=== PATIENT | female | born 1955 | race Caucasian/White ===

== ENCOUNTER → 2016-05-10 | Outpatient (CLI) | payer OTHER ==
[~2016-05-10] MED LIST: ATOR-54 PO; BUPR150T7 PO; CHOL100027 PO; FISHOIL PO; HYDR-5688 PO; HYDR25TA4 PO; LEVO125T72 PO; MULTTAB58 PO; VENL75CA73 PO
== END | disposition home or self-care (01) ==
LOC: C.PAPS 11:48
PROVIDERS: ATTEND Obstetrics & Gynecology
DX: Z01.419 Encounter for gynecological examination (general) (routine) without abnormal findings (principal)

== ENCOUNTER → 2016-05-11 | Outpatient (CLI) | payer OTHER ==
--- NOTE | 2016-05-11 14:38 | DIAGNOSTIC IMAGING REPORT ---
PELVIC ULTRASOUND, TRANSABDOMINAL AND TRANSVAGINAL HISTORY: D25.9 Leiomyoma of uterus COMPARISON: Pelvic ultrasound 10/04/2015. FINDINGS: Uterus: The uterus measures 13.1 x 6.0 7.8 cm. Multiple heterogeneous masses within the uterus with the largest at the fundus measuring 5.8 x 5.5 x 4.9 cm. These likely represent fibroids. This appears to be slight increase in size compared to the prior study. However, this appears to be stable compared to a 07/28/[address] Endometrial stripe: Not well visualized due to the deformity from the multiple uterine fibroids. However, this appears to be slightly thickened at 8 mm. Right ovary: Obscured by overlying bowel gas. Left ovary: Obscured by overlying bowel gas. Miscellaneous:No pelvic free fluid. IMPRESSION: 1. Multiple uterine fibroids are again noted. The dominant 5.8 cm lesion at the uterine fundus appears to be increased in size from the prior pelvic ultrasound. However, when compared to the 07/28/2014 CT examination, this does not appear to be significant change in size. Continued follow is recommended. 2. Mildly thickened endometrial stripe for age measuring 8 mm. However, this remains unchanged. Gynecologic consultation is recommended. Electronically signed by: Skinny Camacho M.D. 05/11/2016 2:35 PM Dictated Date/Time: 05/11/2016 2:25 PM
== END | disposition home or self-care (01) ==
LOC: C.ULTR 09:49
PROVIDERS: ATTEND Obstetrics & Gynecology
DX: D25.9 Leiomyoma of uterus, unspecified (principal)

== ENCOUNTER → 2016-05-31 | Outpatient (CLI) | payer OTHER | END | disposition home or self-care (01) | LOC: C.PATHSPEC 15:39 | PROVIDERS: ATTEND Obstetrics & Gynecology | DX: R93.5 Abnormal findings on diagnostic imaging of other abdominal regions, including retroperitoneum (principal); N85.8 Other specified noninflammatory disorders of uterus ==

== ENCOUNTER → 2016-11-06 | Outpatient (CLI) | payer OTHER ==
[~2016-11-06] MED LIST changes: -HYDR-5688 PO
[2016-11-06 10:04] LABS: ALT/SGPT 31 U/L (12-78); BLOOD UREA NITROGEN 17 mg/dl (7-18); BUN/CREATININE RATIO 15.3 (10-20); CALCIUM 9.9 mg/dl (8.5-10.1); CARBON DIOXIDE 28 mmol/L (21-32); CHLORIDE 104 mmol/L (98-107); GLUCOSE 88 mg/dl (70-99); POTASSIUM 3.2 mmol/L (3.5-5.1); SODIUM 140 mmol/L (136-145)
[2016-11-06 10:08] LABS: ESTIMATED AVERAGE GLUCOSE 108 mg/dl; HA1C FLAG Normal (Normal)
[2016-11-06 10:14] LABS: ALKALINE PHOSPHATASE 134 U/L (45-117); AST/SGOT 22 U/L (15-37)
== END | disposition home or self-care (01) ==
LOC: C.LAB 06:09
PROVIDERS: ATTEND Family Medicine
DX: E66.9 Obesity, unspecified (principal); R73.03 Prediabetes; I10 Essential (primary) hypertension; E03.9 Hypothyroidism, unspecified

== ENCOUNTER → 2017-02-14 | Outpatient (CLI) | payer OTHER ==
--- NOTE | 2017-02-15 14:33 | MAMMOGRAPHY REPORT ---
BILATERAL DIGITAL SCREENING MAMMOGRAM TOMOSYNTHESIS WITH CAD: 02/14/2017 CLINICAL HISTORY: Routine screening. Patient has no complaints. TECHNIQUE: Bilateral breast tomosynthesis in addition to standard 2D mammography was performed. Curr ent study was also evaluated with a Computer Aided Detection (CAD) system. COMPARISON: Comparison is made to exams dated: 03/14/2016 specimen, 03/14/2016 localization, 02/25/20 16 breast MRI, 02/11/2016 ultrasound biopsy, 02/11/2016 ultrasound, and 02/11/2016 mammogram - [facility]. BREAST COMPOSITION: There are scattered areas of fibroglandular density in both breasts. FINDINGS: A linear scar marker now overlies the left upper outer quadrant, denoting an area of recen t surgical excision that yielded multiple radial scars. There is now expected architectural distorti on in the upper outer and central left breast, denoting the area of prior surgical excision. No unex pected areas of architectural distortion, suspicious mass or suspicious calcifications are identified in the left breast. There are scattered benign rounded and rim calcifications. The parenchymal pattern of the right breast is similar to prior exams with stable nodularity througho ut the breast. Stable asymmetry in the lateral right breast. No focal area of distortion, new suspi cious mass or new suspicious macrocalcifications are seen in the right breast. IMPRESSION: ACR BI-RADS CATEGORY 1: NEGATIVE Expected postsurgical changes in the left breast, without mammographic evidence of malignancy jessie falk. Recommend routine screening tomosynthesis mammograms in one year. These results and recommendations were discussed with the patient on 02/14/2017. The patient will a lso receive written notification of the results. Approximately 10% of breast cancers are not detected with mammography. A negative mammographic report should not delay biopsy if a clinically suggestive mass is present. Sofia Vick M.D. ay/:02/14/2017 15:19:35 Research Electrician: Naz DELONG(Jimenez)(M), [facility] letter sent: Normal 1/2 BI-RADS Code: ACR BI-RADS Category 1: Negative
== END | disposition home or self-care (01) ==
LOC: C.MAMM 14:47
PROVIDERS: ATTEND Obstetrics & Gynecology
DX: Z12.31 Encounter for screening mammogram for malignant neoplasm of breast (principal); N64.89 Other specified disorders of breast

== ENCOUNTER → 2017-04-10 | Outpatient (CLI) | payer OTHER ==
[2017-04-10 09:51] LABS: ALT/SGPT 39 U/L (12-78); BLOOD UREA NITROGEN 14 mg/dl (7-18); BUN/CREATININE RATIO 12.9 (10-20); CALCIUM 9.8 mg/dl (8.5-10.1); CARBON DIOXIDE 29 mmol/L (21-32); CHLORIDE 103 mmol/L (98-107); CHOLESTEROL 193 mg/dl (0-200); CREATININE 1.08 mg/dl (0.60-1.20); GLUCOSE 93 mg/dl (70-99); POTASSIUM 3.7 mmol/L (3.5-5.1); SODIUM 139 mmol/L (136-145)
[2017-04-10 09:55] LABS: ALB/GLOB RATIO 0.9 (0.9-2); ALKALINE PHOSPHATASE 141 U/L (45-117); AST/SGOT 35 U/L (15-37); CHOLESTEROL/HDL RATIO 3.6; HDL CHOLESTEROL 54 mg/dl; LDL CHOLESTEROL CALCULATED 84 mg/dl; TRIGLYCERIDES 274 mg/dl (0-150); VERY LOW DENSITY LIPOPROT CALC 55 mg/dl
[2017-04-10 10:06] LABS: ESTIMATED AVERAGE GLUCOSE 108 mg/dl; HA1C FLAG Normal (Normal)
== END | disposition home or self-care (01) ==
LOC: C.LAB 07:19
PROVIDERS: ATTEND Family Medicine
DX: I10 Essential (primary) hypertension (principal); E03.9 Hypothyroidism, unspecified; E66.3 Overweight

== ENCOUNTER → 2017-05-11 | Outpatient (CLI) | payer OTHER | END | disposition home or self-care (01) | LOC: C.PAPS 16:24 | PROVIDERS: ATTEND Emergency Medicine | DX: Z01.419 Encounter for gynecological examination (general) (routine) without abnormal findings (principal) ==

== ENCOUNTER → 2017-06-27 | Outpatient (CLI) | payer OTHER ==
[~2017-06-27] MED LIST changes: -ATOR-54 PO; +ATOR10TA82 PO; +BUPR-79 PO; -BUPR150T7 PO; -CHOL100027 PO; +EFF75 PO; -FISHOIL PO; +MULT-506 PO; -MULTTAB58 PO; -VENL75CA73 PO
[2017-06-27 12:11] LABS: BASO % 0.4 %; BASO ABS # 0.03 K/uL (0-0.2); EOS % 1.1 %; EOS ABS # 0.08 K/uL (0-0.5); HEMATOCRIT 44.6 % (37-47); HEMOGLOBIN 15.4 g/dL (12.0-16.0); IG# 0.01 K/uL (0.00-0.02); LYMPH % 30.5 %; LYMPH ABS # 2.21 K/uL (1.2-3.4); MEAN CELL VOLUME 89.4 fL (80-100); MEAN CORPUSCULAR HEMOGLOBIN 30.9 pg (25-34); MEAN CORPUSCULAR HGB CONC 34.5 g/dl (32-36); MEAN PLATELET VOLUME 8.5 fL (7.4-10.4); MONO % 9.9 %; MONO ABS # 0.72 K/uL (0.11-0.59); PLATELET COUNT 292 K/uL (130-400); RED CELL DISTRIBUTION WIDTH CV 13.2 % (11.5-14.5); RED CELL DISTRIBUTION WIDTH SD 42.8 fL (36.4-46.3); WHITE BLOOD COUNT 7.25 K/uL (4.8-10.8)
[2017-06-27 12:36] LABS: POTASSIUM 3.4 mmol/L (3.5-5.1)
== END | disposition home or self-care (01) ==
LOC: C.LAB 11:14
PROVIDERS: ATTEND Obstetrics & Gynecology
DX: Z01.818 Encounter for other preprocedural examination (principal)

== ENCOUNTER → 2017-07-12 | Day surgery (SDC) | payer OTHER ==
[2017-06-18 10:09] VITALS: Ht 152.4 cm; Wt 77.3 kg
[~2017-07-12] VITALS: Ht 152.4 cm; Wt 77.3 kg
[~2017-07-12] MED LIST changes: +ATROPINE SULFATE 0.1 MG/ML 5ML SYR IV PRN; +DEXAMETHASONE SOD INJ 4 MG/ML VIAL ONE; +EpHEDrine SULFATE INJ 50 MG/ML AMP IV PRN; +FENTANYL CITRATE INJ 50 MCG/1 ML 2 ML VIAL IV PRN; +FENTANYL CITRATE INJ 50 MCG/1 ML 2 ML VIAL ONE; +IBUPROFEN 600 MG TAB PO PRN; +KETOROLAC TROMETHAMINE 30 MG/ML VIAL IV. PRN; +LACTATED RINGER'S 1000ML 1,000 ML IV SCH; +LIDOCAINE HCL 2% 2 ML VIAL (20MG/ML) ONE; +MIDAZOLAM HCL 1 MG/ML 2ML VIAL ONE; +MoRPHine SULFATE 2 MG/ML CARP IV PRN; +MoRPHine SULFATE 4 MG/ML 1 ML CARP\\VIAL IV PRN; +ONDANSETRON INJ 2 MG/ML 2 ML VIAL IV PRN; +ONDANSETRON INJ 2 MG/ML 2 ML VIAL ONE; +OXYCODONE/ACETAMINOPHEN 5-325 TAB PO PRN; +PROPOFOL IV EMULSION 10 MG/ML 20 ML VIAL IV ONE; +SODIUM CHLORIDE 0.9% 1000ML 1,000 ML IV SCH
--- NOTE | 2017-07-12 07:39 | History & Physical Bridge - [place] ---
H&P Re-Evaluation Bridge Note: I have examined the patient, reviewed the History & Physical and in the interval since the performance of the History & Physical I have noted the following changes of clinical significance: No changes noted
--- NOTE | 2017-07-12 08:23 | [facility] Post Operative Brief Note ---
Immediate Operative Summary Operative Date Jul 12, 2017. Pre-Operative Diagnosis Endometrial mass Post-Operative Diagnosis same as preop Procedure(s) Performed Dilatation And Curettage, Hysteroscopy, Removal of mass with myosure Surgeon Dr. Borrero Furniture Mover Driver Surgeon(s) none Estimated Blood Loss 5ml Findings Consistent with Post-Op Diagnosis Fluids (cc crystalloids) 800cc, 265cc deficit Specimens A: endometrial mass B: endometrial curettings Drains None Anesthesia Type General Complication(s) none Disposition Accompanied Pt To Recovery: no Disposition: Recovery Room / PACU
--- NOTE | 2017-07-12 08:25 | Discharge Instructions ---
Discharge Instructions Date of Service Jul 12, 2017. Visit Reason for Visit: Endometrial Mass Discharge Discharge Diagnosis / Problem: s/p D&C/hysteroscopy and removal of mass Discharge Goals Goal(s): Specific goals Activity Recommendations Activity Limitations: per Instructions/Follow-up section Anesthesia . Post Anesthesia Instructions: If you have had General Anesthesia or IV Sedation: * Do not drive today. * Resume driving when surgeon permits. * Do not make important decisions or sign legal documents today. * Call surgeon for: 1. Temperature elevations greater than 101 degrees F. 2. Uncontrollable pain. 3. Excessive bleeding. 4. Persistent nausea and vomiting. 5. Medication intolerance (nausea, vomiting or rash). * For nausea and vomiting use only clear liquids such as: tea, soda, bouillon until nausea subsides, then gradually increase diet as tolerated. * If you have any concerns or questions, call your surgeon's office. If physician is unavailable and it is an emergency, call 911 or go to the nearest emergency room. . Instructions / Follow-Up Instructions / Follow-Up ACTIVITY RECOMMENDATIONS: * Avoid tampons, douching, hot tubs, pools, and intercourse until bleeding has stopped. * May shower as usual. * No strenuous activity for 24-48 hours. After 24-48 hours, you may do anything you feel like doing (driving and sports are okay). SPECIAL CARE INSTRUCTIONS: Special Diet: * Mild nausea may occur in the immediate post-operative period. * Take clear liquids such as tea, cola or bouillon until all nausea has subsided; you may then resume your normal diet. Special Care: * Light bleeding and vaginal spotting can last from a few days to 3-4 weeks. Call your doctor if bleeding becomes heavier than the heaviest part of your period. * Check your temperature twice a day for one week. If it goes above 100.4 degrees Fahrenheit (38.0 Celsius), notify your doctor. * Call your doctor's office for an appointment for 6 weeks after your surgery. FOLLOW-UP VISIT: Call your doctor's office for an appointment for 6 weeks after your surgery. Diet Recommendations Recommended Home Diet: no limitations, resume previous diet Procedures Procedures Performed: Dilatation And Curettage, Hysteroscopy, Removal of mass with myosure Pending Studies Studies pending at discharge: no Medical Emergencies . Who to Call and When: Medical Emergencies: If at any time you feel your situation is an emergency, please call 911 immediately. . Non-Emergent Contact Non-Emergency issues call your: Online Journalist . . "Provider Documentation" section prepared by Jessi Borrero. .
--- NOTE | 2017-07-12 08:47 | OPERATIVE REPORT ---
DATE OF OPERATION: 07/12/2017 PREOPERATIVE DIAGNOSES: Endometrial mass. POSTOPERATIVE DIAGNOSIS: Same. PROCEDURE: D&C, hysteroscopy with removal of endometrial mass using MyoSure. SURGEON: Jessi Borrero MD. ANESTHESIA: General per laryngeal mask. ESTIMATED BLOOD LOSS: 5 mL. FLUIDS: 800 mL. URINE OUTPUT: Clear yellow urine drained from the bladder at the end of the procedure. INDICATIONS: The patient is a 62-year-old white female, postmenopausal, who on follow up for ultrasound for fibroids was found to have a thickened endometrium. On SIS, she had a 2.6 cm multicystic mass filling the cavity. FINDINGS: Uterus sounded to 6 cm. There was a large endometrial polypoid mass within the uterus that was removed using MyoSure. The rest of the endometrium appeared atrophic. COMPLICATIONS: None. DRAINS: None. DISPOSITION: To recovery room in stable condition. DESCRIPTION OF THE PROCEDURE: The patient was taken to the operating room where she was identified verbally and by bracelet. She was placed in dorsal supine position where general anesthesia was induced without difficulty. She was then placed in dorsal lithotomy position in [facility] stirrups and prepped and draped in normal sterile fashion. A time-out was held identifying correct patient, procedure and positioning. An exam under anesthesia was performed. The uterus is top normal size and irregular, consistent with fibroids. It is mobile. There are no appreciable adnexal masses. The bladder was drained of urine. A weighted speculum was placed in the posterior vagina. The anterior lip of the cervix was grasped with a single tooth tenaculum. The uterus sounded to 6 cm, was dilated to #25 Valerie dilator. The MyoSure hysteroscope was introduced into the uterine cavity with the above noted findings. Then using the MyoSure, the endometrial mass was removed in its entirety. The cavity was opened. Both tubal ostia were then visualized. A curettage was then done in 365 degrees. The scope was replaced and again the cavity was opened. The procedure was thus terminated. All instruments removed from the vagina. Hemostasis noted to be excellent. All sponge, lap and needle counts were correct x2. The patient tolerated the procedure well and was taken to recovery room in stable condition. I attest to the content of the Intraoperative Record and any orders documented therein. Any exception s are noted below.
[2017-07-12 09:17] VITALS: TEMP 36.5
[2017-07-12 09:38] VITALS: BP 120/83; PULSE 82; O2SAT 96
--- NOTE | 2017-07-12 09:42 | Anesthesia Progress Nt - [facility] ---
Anesthesia Post Op Note Date & Time Jul 12, 2017 at 09:42 Vital Signs Pain Intensity: 0 Vital Signs Past 12 Hours Date Time Temp Pulse Resp B/P (MAP) Pulse Ox O2 Delivery O2 Flow Rate FiO2 07/12/17 09:38 82 16 120/83 (95) 96 Room Air 07/12/17 09:17 36.5 84 16 135/87 (103) 97 Room Air 07/12/17 09:13 83 14 97 07/12/17 09:13 83 14 07/12/17 09:11 138/84 07/12/17 09:10 37.2 89 20 138/84 97 Room Air 07/12/17 09:08 83 15 07/12/17 09:08 83 15 98 07/12/17 09:07 84 16 97 07/12/17 09:07 83 16 07/12/17 09:06 115/84 07/12/17 09:02 85 12 98 07/12/17 09:02 84 12 07/12/17 09:01 111/80 07/12/17 08:57 82 17 100 07/12/17 08:57 82 17 07/12/17 08:56 123/84 07/12/17 08:52 83 15 99 07/12/17 08:52 82 15 07/12/17 08:51 118/86 07/12/17 08:48 82 20 07/12/17 08:48 81 20 98 07/12/17 08:46 119/83 07/12/17 08:43 81 22 07/12/17 08:43 85 22 97 07/12/17 08:41 107/75 07/12/17 08:39 107/71 07/12/17 08:38 36.7 76 14 107/71 97 Mask 7 07/12/17 08:38 77 07/12/17 08:38 77 97 07/12/17 06:59 36.7 105 18 153/95 (114) 95 Room Air Notes Mental Status: alert / awake / arousable, participated in evaluation Pt Amnestic to Procedure: Yes Nausea / Vomiting: adequately controlled Pain: adequately controlled Airway Patency, RR, SpO2: stable & adequate BP & HR: stable & adequate Hydration State: stable & adequate Anesthetic Complications: no major complications apparent
== END | disposition home or self-care (01) ==
LOC: X.SURG 06:41
PROVIDERS: ATTEND Obstetrics & Gynecology
DX: C54.1 Malignant neoplasm of endometrium (principal); L68.0 Hirsutism; E78.00 Pure hypercholesterolemia, unspecified; E03.9 Hypothyroidism, unspecified; Z82.49 Family history of ischemic heart disease and other diseases of the circulatory system; Z80.3 Family history of malignant neoplasm of breast